=== PATIENT | female | born 1965 | race African-American/Black ===

== ENCOUNTER 2019-03-04 09:01 | Emergency (ER) | payer OTHER, BC ==
[~2019-03-04] VITALS: Ht 157.5 cm; Wt 85.7 kg
[2019-03-04 09:57] LABS: microscopic required? YES; urine erythrocyte TRACE (NEGATIVE)
[2019-03-04 11:18] LABS: BASOPHIL % 0.8 % (0-2); PLATELET COUNT 299 x10^3mcL (130-400); RED CELL DISTRIBUTION WIDTH 13.6 % (11.5-14.5)
[2019-03-04 11:23] LABS: CALCIUM 8.5 mg/dL (8.5-10.1); CARBON DIOXIDE 30.9 mmol/L (21-32); CREATININE SERUM 1.1 mg/dL (0.6-1.0); POTASSIUM SERUM 3.7 mmol/L (3.5-5.1)
[2019-03-04 11:28] LABS: ALBUMIN 3.6 g/dL (3.4-5.0); BILIRUBIN TOTAL 0.6 mg/dL (0.20-1.00); TOTAL PROTEIN, SERUM 7.4 g/dL (6.4-8.2)
[2019-03-04 12:07] VITALS: BP 139/85
== END 2019-03-04 12:25 | disposition home or self-care (01) ==
LOC: ED 09:01
PROVIDERS: Emergency Medicine
DX: N23 Unspecified renal colic (principal); I10 Essential (primary) hypertension; Z88.0 Allergy status to penicillin; Z88.8 Allergy status to other drugs, medicaments and biological substances
CPT/HCPCS: 36415; J1885